=== PATIENT | female | born 1975 | race Caucasian/White ===

== ENCOUNTER 2024-02-08 13:39 | Inpatient (IN) | payer OTHER ==
[2024-02-08 15:08] VITALS: BMI 21.9
[2024-02-08] MEDS ORDERED: diazePAM 5 MG TABLET PO PRN (15:22)
[2024-02-08] MEDS ORDERED: BISMUTH SUBSALICYLATE 524 MG/30 ML PO PRN (15:24)
[2024-02-08] MEDS ORDERED: MAG HYDROX/AL HYDROX/SIMETH 30 ML UNIT-DOSE CUP PO PRN (15:24)
[2024-02-08] MEDS ORDERED: POLYETHYLENE GLYCOL (HEALTHYLAX) 3350 17 GM PACKET PO PRN (15:24)
[2024-02-08] MEDS ORDERED: IBUPROFEN 400 MG TABLET (FP) PO PRN (15:24)
[2024-02-08] MEDS ORDERED: DICYCLOMINE HCL 10 MG CAPSULE PO PRN (15:24)
[2024-02-08] MEDS ORDERED: BENZONATATE 200 MG CAPSULE PO PRN (15:24)
[2024-02-08] MEDS ORDERED: LOPERAMIDE HCL 2 MG CAPSULE PO PRN (15:24)
[2024-02-08] MEDS ORDERED: BENZOCAINE/MENTHOL (CHLORASEPTIC ) LOZENGE MM PRN (15:24)
[2024-02-08] MEDS ORDERED: IBUPROFEN 600 MG TABLET (FP) PO PRN (15:24)
[2024-02-08] MEDS ORDERED: guaiFENesin 600 MG TABLET.ER (FP) PO PRN (15:24)
[2024-02-08] MEDS ORDERED: MAGNESIUM HYDROX 2400MG/30ML ORAL SUSPENSION 30 ML CUP PO PRN (15:24)
[2024-02-08] MEDS ORDERED: ACETAMINOPHEN 325 MG TABLET (FP) PO PRN (15:24)
[2024-02-08] MEDS ORDERED: diazePAM 5 MG TABLET ONE (16:48)
[2024-02-08] MEDS: diazePAM 5 MG TABLET PO SCH (17:16)
[2024-02-08] MEDS: ONDANSETRON *ODT* 4 MG TABLET SL PRN (18:39)
[2024-02-08] MEDS: MELATONIN 5 MG TABLETS PO SCH (22:31)
[2024-02-08] MEDS: THIAMINE 100 MG TABLET PO SCH (22:31)
[2024-02-09] MEDS: PRENATAL VITAMINS W/ FOLIC ACID TABLET (FP) PO SCH (10:14)
[2024-02-09 12:03] LABS: POTASSIUM 4.6 mmol/L (3.5-5.1)
[2024-02-09 12:11] LABS: ALBUMIN 2.9 g/dl (3.4-5.0); BLOOD UREA NITROGEN 12.6 mg/dL (7-18)
[2024-02-09 12:14] LABS: CREATININE 0.8 mg/dL (0.55-1.3)
[2024-02-09 12:15] LABS: BILIRUBIN,TOTAL 0.8 mg/dL (0.2-1)
[2024-02-09 12:16] LABS: TOT PROT 6.2 g/dl (6.4-8.2)
[2024-02-09 12:24] LABS: HEMATOCRIT 31.9 % (32.4-45.2); HEMOGLOBIN 10.4 GM/dL (10.7-15.3); MCH 26.4 pg (25.7-33.7); MCHC 32.7 g/dl (32.0-36.0); MEAN CELL VOLUME 80.8 fl (80-96); PLATELET COUNT 395 10^3/uL (134-434); RBC 3.95 M/mm3 (3.60-5.2); RDW 15.6 % (11.6-15.6); WHITE BLOOD COUNT 7.3 K/mm3 (4.0-10.0)
[2024-02-09 22:54] LABS: HIV INTERPRETATION NEGATIVE (NEGATIVE)
[2024-02-10] MEDS: diazePAM 5 MG TABLET PO SCH (05:56)
[2024-02-10] MEDS: traZODone HCL 50 MG TABLET (FP) PO PRN (22:26)
[2024-02-10] MEDS: METHOCARBAMOL 500 MG TABLET PO PRN (22:26)
[2024-02-11] MEDS: diazePAM 5 MG TABLET PO SCH (05:34)
[2024-02-11] MEDS: ESCITALOPRAM OXALATE 10 MG TABLET PO SCH (15:44)
[2024-02-12] MEDS: diazePAM 5 MG TABLET PO ONE (06:35)
[2024-02-12 08:47] VITALS: BP 100/61; PULSE 79; RESP 18; TEMP 98.4
== END 2024-02-12 09:28 | disposition home or self-care (01) | DRG 775 ==
LOC: YASAS 13:39 → Y3N 17:00
PROVIDERS: ADMIT Allergy & Immunology; ATTEND Surgery
PROC: HZ2ZZZZ Detoxification Services for Substance Abuse Treatment (ICD-10-PCS; principal; 2024-02-08)
DX: F10.230 Alcohol dependence with withdrawal, uncomplicated (principal); F32.A Depression, unspecified; F90.9 Attention-deficit hyperactivity disorder, unspecified type; D64.9 Anemia, unspecified; Z86.59 Personal history of other mental and behavioral disorders; Z88.1 Allergy status to other antibiotic agents
CPT/HCPCS: 36415; 80053; 82962; 85027; 86780; 87389; 93005; 93010; Q0162